=== PATIENT | male | born 1970 | race Caucasian/White ===

== ENCOUNTER 2016-08-02 16:30 | Outpatient (RCR) | payer BC, OTHER ==
[~2016-08-02 16:30] MED LIST: CIPRO 500MG TA500 MG PO; CLEOCIN HC150 MG/CAP PO; FLEXERIL10 MG PO; MEDROL 4MG DOSPA4 MG PO; NO HOME MEDICATIONS; NORCO 325 MG-7.1 TAB PO
== END 2016-10-21 | disposition home or self-care (01) ==
LOC: MKS.ESL.PT
DX: M75.82 Other shoulder lesions, left shoulder (principal)

== ENCOUNTER → 2016-09-22 | Outpatient (CLI) | payer BC, OTHER | LOC: COL.RAD 08:47 | DX: R05 Cough (principal) ==

== ENCOUNTER 2016-12-15 15:27 | Outpatient (RCR) | payer BC, OTHER | END 2017-03-08 10:59 | LOC: MKS.ESL.PT 15:27 | DX: M47.816 Spondylosis without myelopathy or radiculopathy, lumbar region (principal); M43.16 Spondylolisthesis, lumbar region; G89.29 Other chronic pain; Z91.81 History of falling ==

== ENCOUNTER 2019-02-15 16:15 | Outpatient (RCR) | payer BC, OTHER | END 2019-05-02 | disposition home or self-care (01) | LOC: MKS.ESL.PT | DX: M54.12 Radiculopathy, cervical region (principal); M25.512 Pain in left shoulder; R20.2 Paresthesia of skin ==

== ENCOUNTER 2019-06-28 01:04 | Emergency (ER) | payer BC ==
[~2019-06-28] VITALS: Ht 182.9 cm; Wt 122.7 kg
[2019-06-28 01:09] VITALS: BP 142/89; TEMP 97.1
[2019-06-28] MEDS ORDERED: PERCOCET 325 MG1 TA2 PO (01:37)
[2019-06-28] MEDS ORDERED: FLEXERIL 1010 MG/TAB PO (01:37)
[2019-06-28] MEDS ORDERED: LEVAQUIN 5500 MG/TA1 PO (01:44)
[2019-06-28] MEDS ORDERED: PREDNISONE20 MG PO (01:44)
[2019-06-28] MEDS ORDERED: COZAAR100 MG PO (01:45)
[2019-06-28] MEDS ORDERED: PROMETHAZINE12.5 M5 PO (01:45)
[2019-06-28] MEDS ORDERED: HCTZ 25MG TAB25 MG PO (01:46)
[2019-06-28 01:57] VITALS: PULSE 94
== END 2019-06-28 01:55 | disposition home or self-care (01) ==
LOC: COL.ER 01:04
DX: M54.12 Radiculopathy, cervical region (principal); M51.86 Other intervertebral disc disorders, lumbar region; I10 Essential (primary) hypertension
CPT/HCPCS: J1170

== ENCOUNTER 2020-11-12 07:56 | Outpatient (RCR) | payer OTHER ==
[~2020-11-12 07:56] MED LIST changes: +COZAAR100 MG PO; +FLEXERIL 1010 MG/TAB PO; +HCTZ 25MG TAB25 MG PO; +LEVAQUIN 5500 MG/TA1 PO; +PERCOCET 325 MG1 TA2 PO; +PREDNISONE20 MG PO; +PROMETHAZINE12.5 M5 PO
== END 2021-02-03 | disposition home or self-care (01) ==
LOC: WSOH
DX: S29.012A Strain of muscle and tendon of back wall of thorax, initial encounter (principal); J45.909 Unspecified asthma, uncomplicated; I10 Essential (primary) hypertension; Y99.0 Civilian activity done for income or pay; Z98.890 Other specified postprocedural states

== ENCOUNTER 2021-06-19 14:41 | Emergency (ER) | payer BC ==
[~2021-06-19] VITALS: Ht 180.3 cm; Wt 129.5 kg
[2021-06-19 15:21] VITALS: TEMP 99.1
[2021-06-19 16:28] LABS: BASO # 0.1 K/mm3 (0.0-0.2); BASO % 0.8 % (0.0-2.0); EOS # 0.3 K/mm3 (0.0-0.7); EOS % 2.1 % (0.0-4.0); GRAN # 9.9 K/mm3 (1.4-6.5); GRAN % 75.3 % (42.2-75.2); HEMATOCRIT 46.4 % (42.0-52.0); HEMOGLOBIN 15.9 g/dl (13.5-18.0); LYMPH # 1.5 K/mm3 (1.2-3.4); LYMPH % 11.6 % (20.0-51.0); MEAN CELL VOLUME 86 fl (80.0-100.0); MEAN CORPUSCULAR HEMOGLOBIN 30 pg (27-31); MEAN CORPUSCULAR HGB CONC 34 g/dl (33.0-37.0); MEAN PLATELET VOLUME 9.8 fl (7.4-10.4); MONO # 1.3 K/mm3 (0.1-0.6); MONO % 9.9 % (1.7-9.3); PLATELET COUNT 333 K/mm3 (130-400); RED BLOOD COUNT 5.39 M/mm3 (4.20-5.60); REDCELL DISTRIBUTION WIDTH-CV 13.2 % (11.5-14.5)
[2021-06-19 16:53] LABS: BILIRUBIN,TOTAL 1.1 mg/dL (0.2-1.2); CALCIUM 9.4 mg/dL (8.4-10.2); CREATININE, serum 0.95 mg/dL (0.72-1.25); POTASSIUM 3.9 mmol/L (3.5-4.5); TOTAL PROTEIN 8.1 gm/dL (6.2-8.1)
[2021-06-19 17:00] LABS: TROPONIN-I 0.02 ng/mL (0.00-0.033)
[2021-06-19] MEDS ORDERED: PREDNISONE20 MG PO (18:00)
[2021-06-19 18:30] VITALS: BP 139/61; PULSE 80
== END 2021-06-19 18:33 | disposition home or self-care (01) ==
LOC: COL.ER 14:41
PROVIDERS: Emergency Medicine
DX: J45.909 Unspecified asthma, uncomplicated (principal); J06.9 Acute upper respiratory infection, unspecified; R55 Syncope and collapse; I10 Essential (primary) hypertension; Z79.899 Other long term (current) drug therapy; Z79.52 Long term (current) use of systemic steroids
CPT/HCPCS: J7030; J7512

== ENCOUNTER 2022-09-23 02:44 | Emergency (ER) | payer OTHER ==
[~2022-09-23] VITALS: Ht 180.3 cm; Wt 127.3 kg
[2022-09-23 02:52] VITALS: BP 137/81; TEMP 98.3
[2022-09-23 03:44] VITALS: PULSE 95
== END 2022-09-23 03:55 | disposition home or self-care (01) ==
LOC: COL.ER 02:44
DX: K14.8 Other diseases of tongue (principal); J45.909 Unspecified asthma, uncomplicated; Z79.52 Long term (current) use of systemic steroids
CPT/HCPCS: J1200